=== PATIENT | female | born 1985 | race Caucasian/White ===

== ENCOUNTER 2017-02-24 14:07 | Emergency (ER) | payer MEDICAID ==
[~2017-02-24] VITALS: Ht 167.6 cm; Wt 65.6 kg
[~2017-02-24 14:07] MED LIST: ALPR1TAB2 PO; ARIP30TA PO; IBUP800T PO; RISP3TAB PO; ZOLP10TA PO
[2017-02-24 14:13] VITALS: BP 106/68
== END 2017-02-24 14:32 | disposition home or self-care (01) ==
LOC: ED 14:26
DX: L01.01 Non-bullous impetigo (principal); F15.10 Other stimulant abuse, uncomplicated; F31.9 Bipolar disorder, unspecified
CPT/HCPCS: 99283